=== PATIENT | male | born 2000 | race Two or more races ===

== ENCOUNTER 2021-10-27 01:04 | Inpatient (IN) | payer BC, OTHER ==
[~2021-10-27] VITALS: Ht 193 cm; Wt 135.5 kg
[2021-10-27 02:46] LABS: Basophils # (auto) 0 10 ^3/uL (0-0.2); Eosinophils # (auto) 0.1 10 ^3/uL (0-0.8); Eosinophils % (auto) 0.6 % (0.0-7.0)
[2021-10-27 02:51] LABS: Basophils % (auto) 0.2 % (0.0-2.0); Hematocrit 45.1 % (41.0-53.0); Hemoglobin 15.4 g/dL (13.5-17.5); Lymphocytes # (auto) 1.8 10 ^3/uL (0.4-5.4); Lymphocytes % (auto) 16.6 % (10.0-50.0); Mean Corpuscular Hemoglobin 28.8 pg (28.0-32.0); Mean Corpuscular Hgb Conc. 34.2 g/dL (32.0-36.0); Mean Corpuscular Volume 84.3 fL (80.0-100.0); Monocytes % (auto) 9.5 % (0.0-12.0); Neutrophils % (auto) 73.1 % (37.0-80.0); Red Blood Cells 5.35 10^6/uL (4.5-5.90); Red Cell Distribution Width 13.5 % (11.8-14.3)
[2021-10-27 03:07] LABS: Albumin 3.6 g/dL (3.4-5.0); Calcium 9.1 mg/dL (8.5-10.1); Potassium 3.9 mmol/L (3.5-5.1)
[2021-10-27 03:25] LABS: BUN/Creatinine Ratio 10.5; Bilirubin, Total 0.8 mg/dL (0.2-1.0); Total Protein 7.5 g/dL (6.4-8.2)
[2021-10-27] MEDS ORDERED: IOHEXOL 350 MG/ML 100ML IJ ONE (03:36)
[2021-10-27] MEDS ORDERED: AZITHROMYCIN 250 MG TAB PO ONE (09:15)
[2021-10-27] MEDS ORDERED: cefTRIAXone 1GM/50ML D5W 50 ML IV ONE (09:15)
[2021-10-27] MEDS ORDERED: DexAMETHasone INJECTION 10 MG in D5W 5% 50 ML IV ONE (09:45)
[2021-10-27] MEDS ORDERED: MORPHINE SULFATE INJECTION 2 MG/ML SYRG IV PRN ×3 (09:45→10:15)
[2021-10-27] MEDS ORDERED: NITROGLYCERIN 0.4 MG SL TAB SL PRN ×2 (09:45→10:15)
[2021-10-27] MEDS ORDERED: ALUM & MAG HYDROX-SIMETH LIQ(MAALOX) 30 ML PO PRN (10:15)
[2021-10-27] MEDS ORDERED: ACETAMINOPHEN 500 MG TAB PO PRN (10:15)
[2021-10-27] MEDS ORDERED: METOCLOPRAMIDE HCL 5MG/ml INJ 2ml VIAL IV PRN (10:15)
[2021-10-27] MEDS ORDERED: FAMOTIDINE (10MG/ML) 2ML VL IV ONE (10:15)
[2021-10-27] MEDS ORDERED: TEMAZEPAM 15 MG CAP PO PRN (10:15)
[2021-10-27] MEDS ORDERED: ALBUTEROL SULF HFA 90MCG INH 200DOSE IN PRN (10:15)
[2021-10-27] MEDS ORDERED: DOCUSATE SOD 100 MG CAP PO PRN (10:15)
[2021-10-27] MEDS: FAMOTIDINE (10MG/ML) 2ML VL IV SCH (11:00)
[2021-10-27 11:18] LABS: Eosinophils # (auto) 0 10 ^3/uL (0-0.8); Hemoglobin 14.3 g/dL (13.5-17.5); Lymphocytes # (auto) 1.5 10 ^3/uL (0.4-5.4); Monocytes # (auto) 1.1 10 ^3/uL (0-1.3); White Blood Cell 10.7 10^3/uL (4.4-10.8)
[2021-10-27 11:20] LABS: Basophils # (auto) 0 10 ^3/uL (0-0.2); Basophils % (auto) 0.4 % (0.0-2.0); Eosinophils % (auto) 0.3 % (0.0-7.0); Hematocrit 41.8 % (41.0-53.0); Lymphocytes % (auto) 14.2 % (10.0-50.0); Mean Corpuscular Hemoglobin 28.6 pg (28.0-32.0); Mean Corpuscular Hgb Conc. 34.1 g/dL (32.0-36.0); Mean Corpuscular Volume 83.9 fL (80.0-100.0); Monocytes % (auto) 10.4 % (0.0-12.0); Neutrophils % (auto) 74.7 % (37.0-80.0); Red Blood Cells 4.98 10^6/uL (4.5-5.90); Red Cell Distribution Width 13.3 % (11.8-14.3)
[2021-10-27 11:28] LABS: Albumin 3.4 g/dL (3.4-5.0); Calcium 9.1 mg/dL (8.5-10.1); Magnesium 2.7 mg/dL (1.6-2.6); Potassium 4.3 mmol/L (3.5-5.1)
[2021-10-27 11:38] LABS: Bilirubin, Total 0.8 mg/dL (0.2-1.0); CRP High Sensitivity 3.39 mg/dL (< 0.3); Total Protein 7.3 g/dL (6.4-8.2)
[2021-10-27 11:42] LABS: Thyroid Stimulating Hormone 0.69 uIU/mL (0.358-3.74)
[2021-10-27 14:38] LABS: Cholesterol 147 mg/dL (< 200)
[2021-10-27 14:40] LABS: HDL Cholesterol 28 mg/dL (40-59); LDL Cholesterol 99 mg/dL (< 100); Triglycerides 125 mg/dL (< 150)
[2021-10-27 14:41] VITALS: BP 135/75
[2021-10-27 17:00] VITALS: BP 135/75
[2021-10-27 21:00] VITALS: BP 129/60
[2021-10-27] MEDS: ENOXAPARIN SOD 40 MG/0.4 ML SYRINGE SC SCH (21:40)
[2021-10-28 01:04] LABS: Urine Bacteria NONE SEEN /hpf (None Seen); Urine Blood Negative /uL (Negative); Urine Mucus FEW (None Seen); Urine Specific Gravity 1.029 (1.001-1.035); Urine WBC 1 /hpf (0 - 3)
[2021-10-28 01:28] LABS: Amphetamine Screen, Urine NEGATIVE (NEGATIVE); Barbiturate Scree,Urine NEGATIVE (NEGATIVE); Benzodiazephine Screen, Urine NEGATIVE (NEGATIVE); Cannabinoid Screen, Urine NEGATIVE (NEGATIVE); Cocaine Screen, Urine NEGATIVE (NEGATIVE); Opiate Scree,Urine NEGATIVE (NEGATIVE); Phencyclidine Screen, Urine NEGATIVE (NEGATIVE)
[2021-10-28 05:00] VITALS: BP 117/60
[2021-10-28] MEDS: HYDROcodone-ACET 5/325MG TAB PO PRN (06:47)
[2021-10-28 06:52] LABS: Eosinophils # (auto) 0 10 ^3/uL (0-0.8); Eosinophils % (auto) 0.1 % (0.0-7.0)
[2021-10-28 06:55] LABS: Basophils # (auto) 0.1 10 ^3/uL (0-0.2); Basophils % (auto) 0.4 % (0.0-2.0); Hematocrit 41.7 % (41.0-53.0); Hemoglobin 14.6 g/dL (13.5-17.5); Lymphocytes # (auto) 1.8 10 ^3/uL (0.4-5.4); Lymphocytes % (auto) 13.4 % (10.0-50.0); Mean Corpuscular Hemoglobin 29.1 pg (28.0-32.0); Mean Corpuscular Hgb Conc. 34.9 g/dL (32.0-36.0); Mean Corpuscular Volume 83.2 fL (80.0-100.0); Monocytes # (auto) 1.2 10 ^3/uL (0-1.3); Monocytes % (auto) 9.3 % (0.0-12.0); Neutrophils # (auto) 10.2 10 ^3/uL (1.6-8.6); Neutrophils % (auto) 76.8 % (37.0-80.0); Nucleated Red Blood Cells % 0.1 %; Red Blood Cells 5.01 10^6/uL (4.5-5.90); Red Cell Distribution Width 13.4 % (11.8-14.3); White Blood Cell 13.3 10^3/uL (4.4-10.8)
[2021-10-28 07:00] LABS: INR 1.07 (0.9-1.15); Partial Thromboplastin Time 28.8 sec (23.6-33.0)
[2021-10-28 07:10] LABS: Albumin 3.3 g/dL (3.4-5.0); Calcium 9.2 mg/dL (8.5-10.1); Magnesium 2.4 mg/dL (1.6-2.6)
[2021-10-28 07:18] LABS: BUN/Creatinine Ratio 14.6; Bilirubin, Total 0.8 mg/dL (0.2-1.0); Total Protein 7.3 g/dL (6.4-8.2); Uric Acid 4.8 mg/dL (3.5-7.2)
[2021-10-28 09:00] VITALS: BP 129/69
[2021-10-28] MEDS: DexAMETHasone SOD PHOS 10MG/1ML VIAL INJ IV SCH (09:19)
[2021-10-28] MEDS: FAMOTIDINE (10MG/ML) 2ML VL IV SCH (09:19)
[2021-10-28] MEDS: cefTRIAXone 1GM/50ML D5W 50 ML IV SCH (09:19)
[2021-10-28] MEDS: IVERMECTIN 3 MG TAB PO SCH (09:20)
[2021-10-28] MEDS: ENOXAPARIN SOD 40 MG/0.4 ML SYRINGE SC SCH ×2 (09:20→22:12)
[2021-10-28] MEDS: ASCORBIC ACID 1,000 MG TAB PO SCH (09:20)
[2021-10-28] MEDS: CHOLECALCIFEROL (VITD3) 2,000 UNIT CAP/TAB PO SCH (09:21)
[2021-10-28] MEDS: ZINC SULFATE 220mg CAP or TAB PO SCH (09:21)
[2021-10-28] MEDS: AZITHROMYCIN 500MG/ 250ML 250 ML IV SCH (10:30)
[2021-10-28 13:00] VITALS: BP 118/69
[2021-10-28 17:00] VITALS: BP 122/62
[2021-10-28] MEDS: BUDESONIDE (INHALATION) 180 MCG IH IN SCH (20:44)
[2021-10-28 22:00] VITALS: BP 123/56
[2021-10-29 05:00] VITALS: BP 115/63
[2021-10-29] MEDS: BUDESONIDE (INHALATION) 180 MCG IH IN SCH (07:54)
[2021-10-29 09:00] VITALS: BP 122/72
[2021-10-29] MEDS: DexAMETHasone SOD PHOS 10MG/1ML VIAL INJ IV SCH (09:42)
[2021-10-29] MEDS: cefTRIAXone 1GM/50ML D5W 50 ML IV SCH (09:42)
[2021-10-29] MEDS: CHOLECALCIFEROL (VITD3) 2,000 UNIT CAP/TAB PO SCH (09:42)
[2021-10-29] MEDS: ZINC SULFATE 220mg CAP or TAB PO SCH (09:42)
[2021-10-29] MEDS: IVERMECTIN 3 MG TAB PO SCH (09:42)
[2021-10-29] MEDS: ENOXAPARIN SOD 40 MG/0.4 ML SYRINGE SC SCH (09:43)
[2021-10-29] MEDS: ASCORBIC ACID 1,000 MG TAB PO SCH (09:43)
[2021-10-29] MEDS: HYDROcodone-ACET 5/325MG TAB PO PRN (09:43)
[2021-10-29] MEDS: AZITHROMYCIN 500MG/ 250ML 250 ML IV SCH (10:30)
[2021-10-29] MEDS ORDERED: ERGOCALCIFEROL 50,000 UNIT(1.25MG) CAP PO SCH (11:45)
[2021-10-29 13:00] VITALS: BP 123/67
[2021-10-29 15:17] VITALS: BP 123/67
== END 2021-10-29 17:15 | disposition home or self-care (01) | DRG 871 ==
LOC: ER 01:04 → TELE 09:43 → TELE-EAST 14:30
PROVIDERS: ADMIT Hospitalist; ATTEND Internal Medicine
DX: A41.89 Other specified sepsis (principal); U07.1 COVID-19; J12.82 Pneumonia due to coronavirus disease 2019; E66.01 Morbid (severe) obesity due to excess calories; D89.839 Cytokine release syndrome, grade unspecified; Z68.36 Body mass index [BMI] 36.0-36.9, adult; Z79.82 Long term (current) use of aspirin
CPT/HCPCS: 36415; 36600; 71045; 71260; 80053; 80061; 80307; 81001; 82306; 82728; 82805; 83036; 83605; 83615; 83735; 83880; 84100; 84443; 84484; 84550; 85025; 85379; 85610; 85730; 86141; 87040; 87086; 87426; 94640; 96365; 96367; 96375; G0378; J0696; J1100; J3490; J7060